=== PATIENT | female | born 1980 | race Caucasian/White ===

== ENCOUNTER 2017-06-15 23:31 | Emergency (ER) | payer OTHER ==
[2017-06-16 00:21] VITALS: BP 165/112
== END 2017-06-16 00:21 | disposition home or self-care (01) ==
LOC: ED 23:31
DX: J06.9 Acute upper respiratory infection, unspecified (principal); R19.7 Diarrhea, unspecified; M79.1 Myalgia; I10 Essential (primary) hypertension; F41.9 Anxiety disorder, unspecified; L93.0 Discoid lupus erythematosus; Z88.0 Allergy status to penicillin; Z88.2 Allergy status to sulfonamides; Z88.5 Allergy status to narcotic agent; Z88.1 Allergy status to other antibiotic agents